=== PATIENT | female | born 1985 | race African-American/Black ===

== ENCOUNTER 2023-09-18 15:52 | Emergency (ER) | payer OTHER ==
[2023-09-18 16:04] VITALS: BP 127/85; PULSE 68; RESP 18; TEMP 97.9; BMI 24.7
[2023-09-18] MEDS ORDERED: SODIUM CHLORIDE 1,000 ML IV STA (16:18)
[2023-09-18] MEDS ORDERED: ACETAMINOPHEN 1000 MG/100 ML BAG IVPB ONE (16:18)
[2023-09-18] MEDS ORDERED: FAMOTIDINE 20 MG/50 ML IVPB 20 MG/50 ML MG IVPB ONE ×2 (16:18→16:35)
[2023-09-18] MEDS ORDERED: ONDANSETRON 4 MG/2 ML VIAL IVPUSH ONE (16:18)
[2023-09-18] MEDS ORDERED: ACETAMINOPHEN INJECTION 100 ML IVPB ONE (16:35)
[2023-09-18] MEDS ORDERED: ONDANSETRON 4 MG/2 ML VIAL ONE (16:35)
[2023-09-18 17:03] LABS: BASO % 0.3 % (0-2.0); EOS % 0.1 % (0-4.5); HEMATOCRIT 45.7 % (32.4-45.2); HEMOGLOBIN 15.4 GM/dL (10.7-15.3); LYMPH % 8.1 % (8-40); MCH 29.2 pg (25.7-33.7); MCHC 33.6 g/dl (32.0-36.0); MEAN CELL VOLUME 86.9 fl (80-96); MEAN PLT VOLUME 7.4 fl (7.5-11.1); MONO % 2.1 % (3.8-10.2); NEUT % 89.4 % (42.8-82.8); PLATELET COUNT 388 10^3/uL (134-434); RBC 5.26 M/mm3 (3.60-5.2); RDW 14.9 % (11.6-15.6); WHITE BLOOD COUNT 11.9 K/mm3 (4.0-10.0)
[2023-09-18 17:22] LABS: POTASSIUM 4.4 mmol/L (3.5-5.1)
[2023-09-18 17:24] LABS: CALCIUM 10.9 mg/dL (8.5-10.1)
[2023-09-18 17:25] LABS: ALBUMIN 4.6 g/dl (3.4-5.0); BLOOD UREA NITROGEN 11.3 mg/dL (7-18)
[2023-09-18 17:29] LABS: TOT PROT 8.7 g/dl (6.4-8.2)
[2023-09-18 17:30] LABS: BILIRUBIN,TOTAL 1.6 mg/dL (0.2-1)
[2023-09-18 17:37] LABS: LACTIC ACID 4.8 mmol/L (0.4-2.0)
[2023-09-18] MEDS ORDERED: MAG HYDROX/AL HYDROX/SIMETH 30 ML UNIT-DOSE CUP PO ONE (20:19)
[2023-09-18] MEDS ORDERED: SUCRALFATE 1 GM TABLET (FP) PO ONE (20:20)
[2023-09-18] MEDS ORDERED: SUCRALFATE 1 GM TABLET (FP) ONE (20:40)
[2023-09-18] MEDS ORDERED: MAG HYDROX/AL HYDROX/SIMETH 30 ML UNIT-DOSE CUP ONE (20:40)
[2023-09-18 20:47] LABS: EPI CELLS >36 /uL (0-25.1); HYALINE CASTS 10 /uL (0-3.1); PH,URINE 6.5 (5.0-8.0); URINE APPEARANCE CLEAR; URINE BACTERIA 861 /uL (0-1359); URINE BILIRUBIN NEGATIVE (NEGATIVE); URINE COLOR YELLOW; URINE GLUCOSE (UA) NEGATIVE (NEGATIVE); URINE KETONE NEGATIVE (NEGATIVE); URINE LEUK ESTERASE NEGATIVE (NEGATIVE); URINE NITRITE NEGATIVE (NEGATIVE); URINE PROTEIN NEGATIVE (NEGATIVE); URINE RBC 45 /uL (0-23.9); URINE UROBILINOGEN 0.2 mg/dL (0.2-1.0); URINE WBC 44 /uL (0-25.8)
== END 2023-09-18 22:18 | disposition home or self-care (01) ==
LOC: JER 15:52
PROC: 3E033GC Introduction of Other Therapeutic Substance into Peripheral Vein, Percutaneous Approach (ICD-10-PCS; principal; 2023-09-18)
PROC: 3E033GC Introduction of Other Therapeutic Substance into Peripheral Vein, Percutaneous Approach (ICD-10-PCS; 2023-09-18)
PROC: 3E033NZ Introduction of Analgesics, Hypnotics, Sedatives into Peripheral Vein, Percutaneous Approach (ICD-10-PCS; 2023-09-18)
PROC: 3E0337Z Introduction of Electrolytic and Water Balance Substance into Peripheral Vein, Percutaneous Approach (ICD-10-PCS; 2023-09-18)
DX: R10.33 Periumbilical pain (principal); R11.2 Nausea with vomiting, unspecified; R19.7 Diarrhea, unspecified; Z20.822 Contact with and (suspected) exposure to COVID-19
CPT/HCPCS: 0241U-QW; 36415; 74174-TC; 80053; 81003; 83605; 83690; 84484; 84703; 85025; 93005; 93010; 99285-25

== ENCOUNTER 2024-06-11 13:26 | Emergency (ER) | payer OTHER ==
[2024-06-11 13:52] VITALS: BP 158/98; PULSE 101; RESP 19; TEMP 98.6; BMI 25.6
[2024-06-11] MEDS ORDERED: ACETAMINOPHEN 325 MG TABLET (FP) ONE (14:26)
[2024-06-11] MEDS ORDERED: ONDANSETRON *ODT* 4 MG TABLET ONE (14:26)
[2024-06-11] MEDS: ACETAMINOPHEN 325 MG TABLET (FP) PO ONE (14:31)
[2024-06-11] MEDS: ONDANSETRON *ODT* 4 MG TABLET SL ONE (14:31)
[2024-06-11] MEDS ORDERED: ALBUTEROL SO4 2.5/IPRATROPIUM 0.5 INH SOL 3 ML VIAL.NEB. NEB ONE (15:06)
[2024-06-11] MEDS: ALBUTEROL SO4 2.5/IPRATROPIUM 0.5 INH SOL 3 ML VIAL.NEB. NEB ONE (15:13)
[2024-06-11] MEDS: guaiFENesin 600 MG TABLET.ER (FP) PO ONE (16:06)
== END 2024-06-11 16:09 | disposition home or self-care (01) ==
LOC: JERFT 13:26
PROC: 3E0F7GC Introduction of Other Therapeutic Substance into Respiratory Tract, Via Natural or Artificial Opening (ICD-10-PCS; principal; 2024-06-11)
DX: R05.9 Cough, unspecified (principal); R09.81 Nasal congestion; J06.9 Acute upper respiratory infection, unspecified; R19.7 Diarrhea, unspecified; Z20.822 Contact with and (suspected) exposure to COVID-19
CPT/HCPCS: 0241U-QW; 71046-TC-FY; 84703; 93005; 93010; 99285-25; Q0162